=== PATIENT | female | born 1985 | race Asian ===

== ENCOUNTER 2023-06-08 15:53 | Emergency (ER) | payer OTHER ==
[~2023-06-08] VITALS: Ht 147.3 cm; Wt 47.6 kg
[2023-06-08 17:17] LABS: PREGNANCY TEST URINE QUAL NEGATIVE (NEGATIVE)
[2023-06-08] MEDS ORDERED: KETOROLAC TROMETHAMINE INJ 30 MG/ML VIAL ONE (17:44)
[2023-06-08] MEDS ORDERED: ONDANSETRON HCL/PF 4 MG/2 ML VIAL ONE (17:44)
[2023-06-08] MEDS ORDERED: ONDANSETRON HCL/PF 4 MG/2 ML VIAL IVP ONE (18:00)
[2023-06-08] MEDS ORDERED: KETOROLAC TROMETHAMINE INJ 30 MG/ML VIAL IV ONE (18:00)
[2023-06-08] MEDS ORDERED: IV NS 0.9% 1,000 ML BAG IV ONE (18:00)
[2023-06-08] MEDS ORDERED: diphenhydrAMINE HCL 50 MG/ML VIAL ONE (18:54)
[2023-06-08] MEDS ORDERED: diphenhydrAMINE HCL 50 MG/ML VIAL IV ONE (19:00)
[2023-06-08] MEDS ORDERED: NAPR500T6 PO (19:07)
[2023-06-08 19:46] VITALS: BP 126/86; TEMP 98.6; O2SAT 98
== END 2023-06-08 19:46 | disposition home or self-care (01) ==
LOC: ER 16:10
DX: S16.1XXA Strain of muscle, fascia and tendon at neck level, initial encounter (principal); R51.9 Headache, unspecified; X58.XXXA Exposure to other specified factors, initial encounter; Y93.89 Activity, other specified; Y92.89 Other specified places as the place of occurrence of the external cause; Y99.8 Other external cause status
CPT/HCPCS: 99284; 96374; 96375; 96361; 84703; J1200; J1885; J2405; J7030; A4223

== ENCOUNTER 2023-10-20 12:04 | Emergency (ER) | payer OTHER ==
[~2023-10-20] VITALS: Ht 147.3 cm; Wt 47.2 kg
[~2023-10-20 12:04] MED LIST: NAPR500T6 PO
[2023-10-20 12:16] VITALS: TEMP 98.6
[2023-10-20] MEDS ORDERED: dexaMETHasone SOD PHOSPHATE 1 ML ONE (12:42)
[2023-10-20] MEDS ORDERED: diphenhydrAMINE HCL 50 MG/ML VIAL ONE (12:42)
[2023-10-20] MEDS ORDERED: MORPHINE SULFATE INJ 4 MG/ML DISP.SYRIN ONE (12:43)
[2023-10-20] MEDS ORDERED: METOCLOPRAMIDE HCL 10 MG/2 ML VIAL ONE (12:43)
[2023-10-20] MEDS: diphenhydrAMINE HCL 50 MG/ML VIAL IM ONE (14:11)
[2023-10-20] MEDS: METOCLOPRAMIDE HCL 10 MG/2 ML VIAL IV ONE (14:12)
[2023-10-20] MEDS: IV NS 0.9% 1,000 ML BAG IV ONE (14:12)
[2023-10-20] MEDS: dexaMETHasone SOD PHOSPHATE 10 MG/ML VIAL IV ONE (14:12)
[2023-10-20] MEDS ORDERED: LIDO30AD10 TP (14:28)
[2023-10-20] MEDS: MORPHINE SULFATE INJ 2 MG/ML DISP.SYRIN IM ONE (14:30)
[2023-10-20 15:04] VITALS: BP 128/80; O2SAT 99
== END 2023-10-20 15:05 | disposition home or self-care (01) ==
LOC: ER 12:04
DX: R51.9 Headache, unspecified (principal); M62.838 Other muscle spasm
CPT/HCPCS: 99285; 72125; 96374; 96361; 96375; 70450; 96372; J1100; J1200; J2765; J7030 ×2; J2270

== ENCOUNTER 2024-06-04 18:13 | Emergency (ER) | payer OTHER ==
[~2024-06-04] VITALS: Ht 147.3 cm; Wt 49.9 kg
[~2024-06-04 18:13] MED LIST changes: +LIDO30AD10 TP
[2024-06-04 18:21] VITALS: TEMP 98.2
[2024-06-04 19:16] LABS: BASOPHILS # (AUTO) 0.1 K/uL (0.0-0.2); BASOPHILS % (AUTO) 0.9 % (0.0-2.0); EOSINOPHILS # (AUTO) 0.3 K/uL (0.0-0.7); EOSINOPHILS % (AUTO) 4.1 % (0.0-6.0); HEMATOCRIT 43 % (33-45); HEMOGLOBIN 14.1 g/dL (11.5-14.8); LYMPHOCYTES # (AUTO) 1.8 K/uL (0.8-4.8); LYMPHOCYTES % (AUTO) 28.3 % (20.0-44.0); MEAN CORPUSCULAR HEMOGLOBIN 30 PG (26.0-33.0); MEAN CORPUSCULAR HGB CONC 33 g/dl (31.0-36.0); MEAN CORPUSCULAR VOLUME 91 fL (82-100); MONOCYTES # (AUTO) 0.5 K/uL (0.1-1.30); MONOCYTES % (AUTO) 7.1 % (2.0-12.0); NEUTROPHILS # (AUTO) 3.8 K/uL (1.8-8.9); NEUTROPHILS % (AUTO) 59.6 % (43.0-81.0); PLATELET COUNT (AUTO) 313 K/uL (150-450); RED CELL DISTRIBUTION WIDTH 13.6 % (11.5-15.0); WHITE BLOOD COUNT (AUTO) 6.4 K/uL (4.3-11.0)
[2024-06-04] MEDS ORDERED: ACETAMINOPHEN 325 MG TABLET ONE (19:21)
[2024-06-04] MEDS ORDERED: diphenhydrAMINE HCL 50 MG/ML VIAL ONE (19:21)
[2024-06-04] MEDS ORDERED: METOCLOPRAMIDE HCL 10 MG/2 ML VIAL ONE (19:21)
[2024-06-04 19:28] LABS: CALCIUM, SERUM 9.3 mg/dL (8.5-10.1); CARBON DIOXIDE 30 mmol/L (21-32); CHLORIDE 103 mmol/L (98-107); CREATININE 0.8 mg/dL (0.6-1.3); GLUCOSE 86 mg/dL (74-106); POTASSIUM 3.6 mmol/L (3.5-5.1); SODIUM SERUM 142 mmol/L (136-145); UREA NITROGEN, BLOOD 20 mg/dL (7-18)
[2024-06-04] MEDS: ACETAMINOPHEN 325 MG TABLET PO ONE (19:30)
[2024-06-04] MEDS: diphenhydrAMINE HCL 50 MG/ML VIAL IV ONE (19:30)
[2024-06-04 19:34] LABS: ALANINE AMINOTRANSFERASE 37 U/L (12-78); ALKALINE PHOSPHATASE 68 U/L (46-116); ASPARTATE AMINOTRANSFERASE 69 U/L (15-37); BILIRUBIN,DIRECT 0.1 mg/dL (0.0-0.2); BILIRUBIN,TOTAL 0.2 mg/dL (0.2-1.0); TOTAL PROTEIN, SERUM 8.4 g/dL (6.4-8.2)
[2024-06-04] MEDS: IV NS 0.9% 1,000 ML BAG IV ONE (19:45)
[2024-06-04] MEDS: METOCLOPRAMIDE HCL 10 MG/2 ML VIAL IV ONE (19:50)
[2024-06-04 22:48] VITALS: BP 120/87; O2SAT 97
== END 2024-06-04 22:45 | disposition home or self-care (01) ==
LOC: ER 18:14
DX: S09.90XA Unspecified injury of head, initial encounter (principal); G44.309 Post-traumatic headache, unspecified, not intractable; J45.909 Unspecified asthma, uncomplicated; X58.XXXA Exposure to other specified factors, initial encounter; Y93.89 Activity, other specified; Y92.89 Other specified places as the place of occurrence of the external cause; Y99.8 Other external cause status
CPT/HCPCS: 99285; 96374; 70450; 71045; 96361; 96375; 93005; 85025; 80048; 80076; 36415; 84484; 84702; J1200; J2765; J7030